=== PATIENT | female | born 1965 | race Hispanic/Latino ===

== ENCOUNTER 2019-05-09 10:03 | Outpatient (CLI) | payer OTHER ==
--- NOTE | 2019-05-09 12:19 | CT ---
CT ABDOMEN AND PELVIS WITHOUT CONTRAST: Date: 05/09/19 HISTORY: Kidney stones with frequent micturition. TECHNIQUE: Multiple contiguous axial images were obtained in a CT of the abdomen and pelvis without contrast. Sa gittal and coronal reformats were performed. FINDINGS: There are extensive calcifications within the medullary portions of both kidneys. There is cortical t hinning bilaterally. There are nonobstructing bilateral urinary collecting system calcifications sulaiman uring up to 5 mm in size. No calcifications are seen in either ureter or within the urinary bladder. There are calcified gallstones in the gallbladder. The liver, adrenal glands, spleen, and pancreas ar e unremarkable, although evaluation is limited without IV contrast. The large and small bowel are unremarkable. The appendix is normal. The reproductive organs are unrem arkable. No abdominal or pelvic lymphadenopathy are seen. Degenerative changes are seen in the spine. The visualized inferior thorax and abdominal wall soft ti ssues are unremarkable. IMPRESSION: 1. Bilateral nonobstructing kidney stones. 2. Renal medullary calcinosis. 3. Cholelithiasis. POS: CET
== END 2019-05-09 10:04 | disposition home or self-care (01) ==
LOC: BICCT 10:03
PROVIDERS: ATTEND Urology
DX: N20.0 Calculus of kidney (principal); R35.0 Frequency of micturition; K80.20 Calculus of gallbladder without cholecystitis without obstruction
CPT/HCPCS: 74176

== ENCOUNTER 2020-11-26 12:39 | Outpatient (CLI) | payer OTHER | END 2020-11-26 12:40 | disposition home or self-care (01) | LOC: BICRAD 12:39 | PROVIDERS: ATTEND Urology | DX: N20.0 Calculus of kidney (principal) | CPT/HCPCS: 74018 ==

== ENCOUNTER 2024-03-09 16:47 | Inpatient (IN) | payer OTHER, SELFPAY ==
[2024-03-09] MEDS ORDERED: Acetaminophen 500 MG TAB ONE (17:17)
[2024-03-09] MEDS ORDERED: Ondansetron ODT 4 MG TAB ONE (17:17)
[2024-03-09 17:52] LABS: Bacteria/HPF 4+ HPF (None Seen); Bilirubin Negative (Negative); Blood, Urine Negative (Negative); CAUTI Indications for Culture Fever or rigors; Clarity Clear (Clear); Glucose, Urine (Dipstick) Normal (Negative); Ketone, Urine Negative (Negative); Leukocyte Negative Leu/uL (Negative); Nitrite Negative (Negative); Protein, Urine (Dipstick) Negative (Neg-Trace); RBC/HPF 0-3 HPF (0-3); Squamous Epithelial None Seen HPF (0-3); Urobilinogen Normal mg/dL (Less than 2); WBC/HPF 0-3 HPF (0-3)
[2024-03-09 17:54] LABS: Urine Culture Reflex No No
[2024-03-09 18:10] LABS: Hematocrit 46.5 % (36.0-47.0); Hemoglobin 15.6 g/dL (12.0-16.0); Mean Corpuscular HGB CONC 33.5 g/dL (32.0-36.0); Mean Corpuscular Hemoglobin 29.2 pg (27.0-31.0); Mean Corpuscular Volume 87.1 fL (78.0-98.0); Mean Platelet Volume 9.6 fL (7.4-10.4); Platelet Count 122 10x3/uL (130-400); RBC Distribution Width 12.4 % (11.5-14.5); Red Blood Cell (RBC) Count 5.34 mill/uL (4.20-5.40)
[2024-03-09 18:26] LABS: ALT (SGPT) 16 U/L (8-55); AST (SGOT) 25 U/L (5-34); Albumin 3.7 g/dL (3.4-4.8); Alkaline Phosphatase 88 U/L (40-110); Anion Gap 16 mmol/L (10-20); BUN (Urea Nitrogen) 27 mg/dL (9.8-20.1); Bilirubin, Total 0.9 mg/dL (0.2-1.2); Calc. Creatinine Clearance 0 mL/min (70-130); Calcium 8.7 mg/dL (7.8-10.44); Carbon Dioxide 20 mmol/L (23-31); Chloride 106 mmol/L (98-107); Estimated GFR 41; Globulin 3.8 g/dL (2.4-3.5); Glucose 93 mg/dL (80-115); Lipase 27 U/L (8-78); Potassium 3.5 mmol/L (3.5-5.1); Protein, Total 7.5 g/dL (5.8-8.1); Sodium 138 mmol/L (136-145)
[2024-03-09 18:41] LABS: Band 39 % (5-11); Lymphocytes 26 % (21-51); Metamyelocyte 1 % (0-0); Neutrophil 35 % (42-75); Platelet Adequacy Comment Platelets Decreased; Polychromasia SLIGHT = 2-3 cells HPF (0-2); Tear Drops SLIGHT = 2-5 cells HPF (0-1)
[2024-03-09] MEDS ORDERED: Morphine 4 MG/ML VIAL ONE (18:43)
[2024-03-09] MEDS ORDERED: Ketorolac Tromethamine 30 MG (1 mL) VIAL ONE ×2 (18:43→20:55)
[2024-03-09] MEDS ORDERED: Ondansetron PF 4 MG/2 ML Vial ONE ×2 (18:44→20:55)
[2024-03-09] MEDS ORDERED: HYDROmorphone 0.5 MG/0.5 ML SYRINGE ONE (20:25)
[2024-03-09] MEDS ORDERED: cefTRIAXone (ROCEPHIN) 2 GM VIAL ONE (20:26)
[2024-03-09] MEDS ORDERED: Iopamidol 30 ML ONE (20:28)
[2024-03-09] MEDS ORDERED: traMADol HCl 50 MG TAB PO PRN (20:42)
[2024-03-09] MEDS ORDERED: PROPOFOL 20 ML ONE (20:54)
[2024-03-09] MEDS ORDERED: fentaNYL PF 100 MCG/2 ML SYRINGE ONE (20:54)
[2024-03-09] MEDS ORDERED: ePHEDrine Sulfate 50 MG/10 ML VIAL ONE ×2 (20:54→21:28)
[2024-03-09] MEDS ORDERED: PHENYLEPHRINE-NS 100 MCG/ML 10 ML SYRINGE ONE ×2 (20:55→21:24)
[2024-03-09] MEDS ORDERED: SUCCINYLCHOLINE/SOD CL,ISO/PF 200 MG/10 ML SYRINGE FS ONE (20:55)
[2024-03-09] MEDS ORDERED: Dexamethasone 20 MG/5 ML VIAL ONE (20:55)
[2024-03-09] MEDS ORDERED: Rocuronium Bromide 10 MG/ML (10ML VIAL) ONE (20:55)
[2024-03-09] MEDS ORDERED: Lidocaine 2% PF 100 mg/5 ml Syringe ONE (20:55)
[2024-03-09] MEDS ORDERED: Promethazine HCl 25 MG/ML VIAL IM PRN (21:12)
[2024-03-09] MEDS ORDERED: Ondansetron HCl/PF 4 MG/2 ML Vial IVP PRN (21:12)
[2024-03-09] MEDS ORDERED: PACU-Morphine 4MG/ML VIAL SLOW IVP PRN (21:12)
[2024-03-09] MEDS ORDERED: HYDROmorphone 2 MG/ML VIAL SLOW IVP PRN (21:12)
[2024-03-09] MEDS ORDERED: Morphine 2 MG/ML VIAL SLOW IVP PRN (21:13)
[2024-03-09] MEDS ORDERED: Famotidine/PF 20 mg/2ml Vial ONE (23:22)
[2024-03-10] MEDS ORDERED: Morphine 2 MG/ML VIAL SLOW IVP PRN (02:01)
[2024-03-10 02:17] VITALS: BMI 32.1
[2024-03-10] MEDS: Vancomycin (BATCH) 1.75 GM in Premix 1 BAG IVPB SCH (03:16)
[2024-03-10] MEDS: Sodium Chloride 0.9% 1,000 ML IV SCH ×2 (03:16)
[2024-03-10] MEDS: Acetaminophen 325 MG TAB PO SCH (03:16)
[2024-03-10] MEDS: Sodium Chloride 0.9% 500 ML IV SCH (03:17)
[2024-03-10] MEDS: Levothyroxine Sodium 75 MCG TAB PO SCH (05:46)
[2024-03-10 05:59] LABS: Lactic Acid 2.39 mmol/L (0.5-2.2); Lactic Acid 2.61 mmol/L (0.5-2.2)
[2024-03-10] MEDS ORDERED: Ondansetron ODT 4 MG TAB PO PRN (06:00)
[2024-03-10 06:13] LABS: ALT (SGPT) 22 U/L (8-55); AST (SGOT) 31 U/L (5-34); Albumin 2.5 g/dL (3.4-4.8); Alkaline Phosphatase 39 U/L (40-110); Anion Gap 13 mmol/L (10-20); BUN (Urea Nitrogen) 22 mg/dL (9.8-20.1); Bilirubin, Total 0.3 mg/dL (0.2-1.2); Calc. Creatinine Clearance 59 mL/min (70-130); Carbon Dioxide 18 mmol/L (23-31); Chloride 116 mmol/L (98-107); Estimated GFR 53; Globulin 2.9 g/dL (2.4-3.5); Glucose 108 mg/dL (80-115); Hematocrit 40.4 % (36.0-47.0); Hemoglobin 13.3 g/dL (12.0-16.0); Mean Corpuscular HGB CONC 32.9 g/dL (32.0-36.0); Mean Corpuscular Hemoglobin 29.7 pg (27.0-31.0); Mean Corpuscular Volume 90.2 fL (78.0-98.0); Mean Platelet Volume 9.6 fL (7.4-10.4); Platelet Count 109 10x3/uL (130-400); Protein, Total 5.4 g/dL (5.8-8.1); Red Blood Cell (RBC) Count 4.48 mill/uL (4.20-5.40); Sodium 144 mmol/L (136-145)
[2024-03-10] MEDS: Ondansetron PF 4 MG/2 ML Vial IVP PRN (06:34)
[2024-03-10 08:08] LABS: Band 32 % (5-11); Burr Cells MODERATE= 6-15 cells HPF (0-1); Lymphocytes 3 % (21-51); Metamyelocyte 5 % (0-0); Monocytes 3 % (0-10); Neutrophil 57 % (42-75); Platelet Adequacy Comment Platelets Decreased
[2024-03-10] MEDS ORDERED: Famotidine 20 MG TAB PO SCH (09:00)
[2024-03-10] MEDS: Enoxaparin 40 MG (0.4 mL) SYRINGE SC SCH (09:41)
[2024-03-10] MEDS: Potassium Chloride 20 MEQ TAB PO SCH (11:07)
[2024-03-10] MEDS: Polyethylene Glycol 3350 17 GM Packet PO SCH (16:14)
[2024-03-10] MEDS: Lidocaine 2% Viscous Solution 20 ML, Aluminum & Magnesium Hydroxide 30 ML, Donnatal Eli... SSW SCH (16:16)
[2024-03-10 17:06] LABS: Potassium 4.1 mmol/L (3.5-5.1)
[2024-03-10] MEDS: Famotidine 20 MG TAB PO SCH (20:30)
[2024-03-10] MEDS: cefTRIAXone (ROCEPHIN) 2 GM VIAL ONE (20:30)
[2024-03-10] MEDS: cefTRIAXone\\ROCEPHIN 2 GM in Sodium Chloride 0.9% 100 ML IVPB SCH (20:31)
[2024-03-10] MEDS: Famotidine/PF 20 mg/2ml Vial SLOW IVP SCH (20:37)
[2024-03-10] MEDS: HYDROcodone/Acetaminophen 5/325 mg Tablet PO PRN (20:39)
[2024-03-10] MEDS: Albumin 25% 25 GM (100 mL) BOT IVPB SCH (21:46)
[2024-03-11 06:43] LABS: Hematocrit 39.6 % (36.0-47.0); Hemoglobin 12.8 g/dL (12.0-16.0); Mean Corpuscular HGB CONC 32.3 g/dL (32.0-36.0); Mean Corpuscular Hemoglobin 28.4 pg (27.0-31.0); Mean Platelet Volume 11.2 fL (7.4-10.4); Platelet Count 76 10x3/uL (130-400); RBC Distribution Width 13.8 % (11.5-14.5)
[2024-03-11 06:52] LABS: Anion Gap 14 mmol/L (10-20); BUN (Urea Nitrogen) 22 mg/dL (9.8-20.1); Calc. Creatinine Clearance 71 mL/min (70-130); Carbon Dioxide 17 mmol/L (23-31); Chloride 114 mmol/L (98-107); Estimated GFR 65; Glucose 81 mg/dL (80-115); Potassium 4.2 mmol/L (3.5-5.1); Sodium 141 mmol/L (136-145)
[2024-03-11 07:21] LABS: Band 28 % (5-11); Burr Cells SLIGHT = 2-5 cells HPF (0-1); Lymphocytes 5 % (21-51); Metamyelocyte 10 % (0-0); Monocytes 1 % (0-10); Neutrophil 56 % (42-75); Platelet Adequacy Comment Platelets Decreased; Polychromasia SLIGHT = 2-3 cells HPF (0-2)
[2024-03-11] MEDS: Polyethylene Glycol 3350 17 GM Packet PO SCH (09:04)
[2024-03-11 18:41] LABS: Lactic Acid 2.42 mmol/L (0.5-2.2)
[2024-03-11 21:33] LABS: Band 26 % (5-11); Burr Cells SLIGHT = 2-5 cells HPF (0-1); Lymphocytes 7 % (21-51); Macrocytosis SLIGHT = 6-15 cells HPF (0-5); Metamyelocyte 4 % (0-0); Neutrophil 64 % (42-75); Nucleated RBC (Manual Ct) 1 % (0); Platelet Adequacy Comment Platelets Decreased; Poikilocytosis SLIGHT = 6-15 cells HPF (0-5); Polychromasia SLIGHT = 2-3 cells HPF (0-2); Vacuoles SLIGHT
[2024-03-11 21:35] LABS: Hematocrit 43.2 % (36.0-47.0); Hemoglobin 13.8 g/dL (12.0-16.0); Mean Corpuscular HGB CONC 31.9 g/dL (32.0-36.0); Mean Corpuscular Hemoglobin 28.8 pg (27.0-31.0); Mean Corpuscular Volume 90.2 fL (78.0-98.0); Mean Platelet Volume 11.5 fL (7.4-10.4); Platelet Count 78 10x3/uL (130-400); RBC Distribution Width 13.7 % (11.5-14.5); Red Blood Cell (RBC) Count 4.79 mill/uL (4.20-5.40)
[2024-03-12 09:48] LABS: Hematocrit 38.9 % (36.0-47.0); Hemoglobin 12.7 g/dL (12.0-16.0); Mean Corpuscular HGB CONC 32.6 g/dL (32.0-36.0); Mean Corpuscular Hemoglobin 28.7 pg (27.0-31.0); Mean Corpuscular Volume 87.8 fL (78.0-98.0); Mean Platelet Volume 11.1 fL (7.4-10.4); Platelet Count 100 10x3/uL (130-400); RBC Distribution Width 13.7 % (11.5-14.5); Red Blood Cell (RBC) Count 4.43 mill/uL (4.20-5.40)
[2024-03-12 09:56] LABS: Anion Gap 12 mmol/L (10-20); BUN (Urea Nitrogen) 16 mg/dL (9.8-20.1); Calc. Creatinine Clearance 79 mL/min (70-130); Calcium 7.5 mg/dL (7.8-10.44); Carbon Dioxide 19 mmol/L (23-31); Chloride 112 mmol/L (98-107); Estimated GFR 73; Glucose 79 mg/dL (80-115); Potassium 3.4 mmol/L (3.5-5.1); Sodium 140 mmol/L (136-145)
[2024-03-12 10:11] LABS: Band 37 % (5-11); Lymphocytes 9 % (21-51); Macrocytosis SLIGHT = 6-15 cells HPF (0-5); Metamyelocyte 4 % (0-0); Monocytes 2 % (0-10); Neutrophil 48 % (42-75); Platelet Adequacy Comment Platelets Decreased; Polychromasia SLIGHT = 2-3 cells HPF (0-2); Vacuoles SLIGHT
[2024-03-12] MEDS: Nystatin 500,000 UNITS/5 ML UDCUP SSW SCH ×2 (18:19→20:33)
[2024-03-13 07:02] LABS: Hematocrit 39.8 % (36.0-47.0); Hemoglobin 12.9 g/dL (12.0-16.0); Mean Corpuscular HGB CONC 32.4 g/dL (32.0-36.0); Mean Corpuscular Volume 89.4 fL (78.0-98.0); Mean Platelet Volume 10.8 fL (7.4-10.4); Platelet Count 111 10x3/uL (130-400); RBC Distribution Width 13.7 % (11.5-14.5); Red Blood Cell (RBC) Count 4.45 mill/uL (4.20-5.40)
[2024-03-13 07:29] LABS: Anion Gap 13 mmol/L (10-20); BUN (Urea Nitrogen) 16 mg/dL (9.8-20.1); Calc. Creatinine Clearance 88 mL/min (70-130); Calcium 7.2 mg/dL (7.8-10.44); Carbon Dioxide 18 mmol/L (23-31); Chloride 112 mmol/L (98-107); Estimated GFR 83; Glucose 60 mg/dL (80-115); Sodium 140 mmol/L (136-145)
[2024-03-13 07:35] LABS: Lactic Acid 0.76 mmol/L (0.5-2.2)
[2024-03-13 08:01] LABS: Band 13 % (5-11); Burr Cells SLIGHT = 2-5 cells HPF (0-1); Lymphocytes 11 % (21-51); Monocytes 2 % (0-10); Neutrophil 73 % (42-75); Platelet Adequacy Comment Platelets Decreased; Polychromasia SLIGHT = 2-3 cells HPF (0-2)
[2024-03-13] MEDS: Famotidine 20 MG TAB PO SCH (08:29)
[2024-03-13 10:12] LABS: Bilirubin Negative (Negative); Blood, Urine 2+ (Negative); Clarity Clear (Clear); Glucose, Urine (Dipstick) Normal (Negative); Ketone, Urine 40 mg/dL (Negative); Leukocyte 75 Leu/uL (Negative); Nitrite Negative (Negative); Protein, Urine (Dipstick) 20 mg/dL (Neg-Trace); Specific Gravity, Urine 1.009 (1.002-1.036); Squamous Epithelial 0-3 HPF (0-3); Urobilinogen Normal mg/dL (Less than 2)
[2024-03-13 10:14] LABS: Bacteria/HPF 1+ HPF (None Seen)
[2024-03-13] MEDS: Potassium Chloride 20 MEQ TAB PO SCH ×2 (10:25→12:02)
[2024-03-13] MEDS ORDERED: Potassium Chloride 20 MEQ TAB PO SCH (11:00)
[2024-03-13 15:38] VITALS: BP 130/78; TEMP 98.1
== END 2024-03-13 18:01 | disposition home or self-care (01) | DRG 854 ==
LOC: ERS 16:47 → SDC/OP 20:54 → CCU 03-10 00:32 → SURG A 03-10 18:55
PROVIDERS: ADMIT Internal Medicine; ATTEND Student in an Organized Health Care Education/Training Program
PROC: 0T768DZ Dilation of Right Ureter with Intraluminal Device, Via Natural or Artificial Opening Endoscopic (ICD-10-PCS; principal; 2024-03-09)
PROC: BT1F1ZZ Fluoroscopy of Left Kidney, Ureter and Bladder using Low Osmolar Contrast (ICD-10-PCS; 2024-03-09)
PROC: 3E03329 Introduction of Other Anti-infective into Peripheral Vein, Percutaneous Approach (ICD-10-PCS; 2024-03-09)
PROC: 30233J1 Transfusion of Nonautologous Serum Albumin into Peripheral Vein, Percutaneous Approach (ICD-10-PCS; 2024-03-09)
DX: A41.51 Sepsis due to Escherichia coli [E. coli] (principal); E87.20 Acidosis, unspecified; N13.6 Pyonephrosis; N17.9 Acute kidney failure, unspecified; R65.20 Severe sepsis without septic shock; E03.9 Hypothyroidism, unspecified; D69.6 Thrombocytopenia, unspecified; K80.20 Calculus of gallbladder without cholecystitis without obstruction; Z79.899 Other long term (current) drug therapy; Z91.199 Patient's noncompliance with other medical treatment and regimen due to unspecified reason
CPT/HCPCS: 36415; 36416; 74176; 74420; 80048; 80053; 81001; 83605; 83690; 84145; 85025; 87040; 87077; 87086; 87149; 87186; 96374; 96375; C2617; J0696; J1100; J1170; J1650; J1885; J2001; J2272; J2405; J2704; J3370; J3490; J7030; Q0162; Q9967

== ENCOUNTER 2024-03-19 15:11 | Outpatient (CLI) | payer SELFPAY ==
[2024-03-19 16:54] LABS: #Basophils 0.04 10x3/uL (0.0-0.2); %Basophils 0.5 % (0.0-1.0); %Eosinophils 1.1 % (0.0-10.0); %Lymphocytes 46.4 % (21.0-51.0); %Monocytes 5.6 % (0.0-10.0); %Neutrophils 44.7 % (42.0-75.0); Hematocrit 43.4 % (36.0-47.0); Hemoglobin 14.2 g/dL (12.0-16.0); Mean Corpuscular HGB CONC 32.7 g/dL (32.0-36.0); Mean Corpuscular Hemoglobin 28.6 pg (27.0-31.0); Mean Corpuscular Volume 87.3 fL (78.0-98.0); Mean Platelet Volume 8.7 fL (7.4-10.4); Platelet Count 637 10x3/uL (130-400); Red Blood Cell (RBC) Count 4.97 mill/uL (4.20-5.40)
[2024-03-19 17:14] LABS: Anion Gap 13 mmol/L (10-20); BUN (Urea Nitrogen) 16 mg/dL (9.8-20.1); Calc. Creatinine Clearance 0 mL/min (70-130); Calcium 8.7 mg/dL (7.8-10.44); Carbon Dioxide 25 mmol/L (23-31); Chloride 103 mmol/L (98-107); Estimated GFR 69; Glucose 89 mg/dL (80-115); Prothrombin Time 13.6 sec (12.0-14.7); Sodium 137 mmol/L (136-145)
[2024-03-19 17:15] LABS: PTT 29.5 sec (22.9-36.1)
[2024-03-19 18:32] LABS: Bacteria/HPF None Seen HPF (None Seen); Bilirubin Negative (Negative); Blood, Urine 1+ (Negative); Clarity Clear (Clear); Glucose, Urine (Dipstick) Normal (Negative); Ketone, Urine Negative (Negative); Leukocyte 75 Leu/uL (Negative); Nitrite Negative (Negative); Protein, Urine (Dipstick) Negative (Neg-Trace); Specific Gravity, Urine 1.008 (1.002-1.036); Squamous Epithelial 0-3 HPF (0-3); Urobilinogen Normal mg/dL (Less than 2)
== END 2024-03-19 15:12 | disposition home or self-care (01) ==
LOC: LABBT 15:11
PROVIDERS: ATTEND Urology
DX: Z01.818 Encounter for other preprocedural examination (principal)
CPT/HCPCS: 80048; 81001; 85025; 85610; 85730; 87086; 93005; 93010

== ENCOUNTER → 2024-04-02 | Day surgery (SDC) | payer OTHER, SELFPAY ==
[2024-03-19 15:56] VITALS: BMI 30.2
[~2024-04-02] MED LIST: Dexamethasone 4 mg/ml Vial ONE; Iopamidol 15 ML ONE; Lidocaine 2% PF 5 ML VIAL ONE; Ondansetron PF 4 MG/2 ML Vial ONE; Oxybutynin 5 MG TAB ONE; PHENYLEPHRINE-NS 100 MCG/ML 10 ML SYRINGE ONE; PROPOFOL 20 ML ONE; Phenazopyridine HCl 100 MG TAB ONE; SUGAMMADEX SODIUM 200 MG/2 ML VIAL ONE; Sodium Chloride 0.9% 100 ML ONE; cefTRIAXone (ROCEPHIN) 2 GM VIAL ONE; ePHEDrine Sulfate 50 MG/10 ML VIAL ONE; fentaNYL PF 100 MCG/2 ML SYRINGE ONE
== END ==
LOC: SDC 08:08
PROVIDERS: ATTEND Urology
PROC: 0TC78ZZ Extirpation of Matter from Left Ureter, Via Natural or Artificial Opening Endoscopic (ICD-10-PCS; principal; 2024-04-02)
PROC: 0T778DZ Dilation of Left Ureter with Intraluminal Device, Via Natural or Artificial Opening Endoscopic (ICD-10-PCS; principal; 2024-04-02)
DX: N20.0 Calculus of kidney (principal); A49.8 Other bacterial infections of unspecified site; D72.825 Bandemia
CPT/HCPCS: 74420; 82365; 88300; C1747; C1769; C2617; J0696; J1100; J2405; J2704; Q9967

== ENCOUNTER 2024-04-10 09:09 | Outpatient (CLI) | payer OTHER ==
[2024-04-10 10:11] LABS: #Basophils 0.04 10x3/uL (0.0-0.2); %Basophils 0.6 % (0.0-1.0); %Eosinophils 0.9 % (0.0-10.0); %Lymphocytes 40.3 % (21.0-51.0); %Monocytes 5.8 % (0.0-10.0); %Neutrophils 52.1 % (42.0-75.0); Hematocrit 44.2 % (36.0-47.0); Hemoglobin 14.2 g/dL (12.0-16.0); Mean Corpuscular HGB CONC 32.1 g/dL (32.0-36.0); Mean Corpuscular Volume 90.4 fL (78.0-98.0); Mean Platelet Volume 9.5 fL (7.4-10.4); Platelet Count 241 10x3/uL (130-400); RBC Distribution Width 13.5 % (11.5-14.5); Red Blood Cell (RBC) Count 4.89 mill/uL (4.20-5.40)
[2024-04-10 10:24] LABS: Anion Gap 10 mmol/L (10-20); BUN (Urea Nitrogen) 16 mg/dL (9.8-20.1); Calc. Creatinine Clearance 0 mL/min (70-130); Calcium 8.4 mg/dL (7.8-10.44); Carbon Dioxide 28 mmol/L (23-31); Chloride 106 mmol/L (98-107); Estimated GFR 60; Glucose 89 mg/dL (80-115); Potassium 3.9 mmol/L (3.5-5.1); Sodium 140 mmol/L (136-145)
[2024-04-10 10:28] LABS: Prothrombin Time 13.1 sec (12.0-14.7)
[2024-04-10 10:29] LABS: PTT 29.7 sec (22.9-36.1)
== END 2024-04-10 09:10 | disposition home or self-care (01) ==
LOC: LABBT 09:09
PROVIDERS: ATTEND Urology
DX: Z01.818 Encounter for other preprocedural examination (principal); N20.0 Calculus of kidney; R35.0 Frequency of micturition; E83.59 Other disorders of calcium metabolism; Z98.890 Other specified postprocedural states
CPT/HCPCS: 80048; 85025; 85610; 85730; 93005; 93010